=== PATIENT | female | born 1990 | race Caucasian/White ===

== ENCOUNTER 2021-06-28 09:45 | Emergency (ER) | payer OTHER ==
--- NOTE | 2021-06-28 10:24 | EDM.PDOC ---
ED HPI GENERAL MEDICAL PROBLEM - General Chief Complaint: General Stated Complaint: OB-SPOTTING,CRAMPING Time Seen by Provider: 06/28/21 09:54 Source of Information: Reports: Patient History Limitations: Reports: No Limitations - History of Present Illness INITIAL COMMENTS - FREE TEXT/NARRATIVE: Patient presents with vaginal bleeding. It is constant and heavier than her usual menstrual bleeding, also some mild cramping. It started 2 days ago. Three days ago she took a home test that was positive. She checked it because she was a week late for her period and she and her are trying for their third child. She called her OB at [facility] and was told to come to ER. - Related Data Allergies Allergy/AdvReac Type Severity Reaction Status Date / Time No Known Drug Allergies Allergy Cannot Verified 06/28/21 10:09 Remember Home Meds: Home Meds . [No Known Home Meds] 06/28/21 [History] Social & Family History - Tobacco Use Tobacco Use Status *Q: Never Tobacco User - Caffeine Use Caffeine Use: Reports: Coffee - Recreational Drug Use Recreational Drug Use: No ED ROS GENERAL - Review of Systems Review Of Systems: See Below Constitutional: Denies: Fever, Chills, Malaise, Weakness HEENT: Denies: Ear Pain, Throat Pain, Vision Change Respiratory: Denies: Shortness of Breath, Cough Cardiovascular: Denies: Chest Pain, Lightheadedness, Syncope GI/Abdominal: Denies: Abdominal Pain, Diarrhea, Nausea, Vomiting : Denies: Dysuria, Flank Pain Musculoskeletal: Reports: No Symptoms, Muscle Stiffness Neurological: Reports: No Symptoms Psychiatric: Reports: No Symptoms Hematologic/Lymphatic: Reports: No Symptoms ED EXAM, GENERAL - Physical Exam Exam: See Below Exam Limited By: No Limitations General Appearance: Alert, WD/WN, No Apparent Distress Eye Exam: Bilateral Eye: EOMI, Normal Inspection, PERRL Ears: Normal External Exam, Hearing Grossly Normal Nose: Normal Inspection, No Blood Throat/Mouth: Normal Inspection, Normal Lips, Normal Voice, No Airway Compromise Head: Atraumatic, Normocephalic Neck: Normal Inspection, Full Range of Motion Respiratory/Chest: No Respiratory Distress, Lungs Clear, Normal Breath Sounds, No Accessory Muscle Use Cardiovascular: Regular Rate, Rhythm, No Murmur GI/Abdominal: Normal Bowel Sounds, Soft, Non-Tender, No Organomegaly, No Distention, No Abnormal Bruit Back Exam: Normal Inspection, Full Range of Motion. No: CVA Tenderness (L), CVA Tenderness (R) Extremities: Normal Inspection, Normal Range of Motion Neurological: Alert, Oriented, Normal Cognition, No Motor/Sensory Deficits Psychiatric: Normal Affect, Normal Mood Skin Exam: Warm, Dry, Intact, Normal Color, No Rash Course - Vital Signs Last Recorded V/S: Last Vital Signs Temp 98.1 F 06/28/21 10:03 Pulse 91 06/28/21 10:03 Resp 16 06/28/21 10:03 BP 138/90 06/28/21 10:03 Pulse Ox 98 06/28/21 10:03 - Orders/Labs/Meds Labs: Laboratory Tests 06/28/21 06/28/21 Range/Units 10:30 10:30 WBC 6.10 (5.00-10.00) 10^3/uL RBC 4.84 (3.80-5.50) 10^6/uL Hgb 13.9 (12.0-16.0) g/dL Hct 42.2 (37.0-47.0) % MCV 87.2 (82.0-92.0) fL MCH 28.7 (27.0-31.0) pg MCHC 32.9 (32.0-36.0) g/dL RDW 11.5 (11.5-14.5) % Plt Count 236 (150-400) 10^3/uL MPV 9.9 (7.4-10.4) fL Immature Gran % (Auto) 0.2 (0.0-5.0) % Neut % (Auto) 67.4 (50.0-70.0) % Lymph % (Auto) 28.5 (20.0-40.0) % Dickey % (Auto) 2.8 (2.0-8.0) % Eos % (Auto) 0.8 L (1.0-3.0) % Baso % (Auto) 0.3 (0.0-1.0) % Neut # (Auto) 4.11 (2.50-7.00) 10^3/uL Lymph # (Auto) 1.74 (1.00-4.00) 10^3/uL Dickey # (Auto) 0.17 (0.10-0.80) 10^3/uL Eos # (Auto) 0.05 L (0.10-0.30) 10^3/uL Baso # (Auto) 0.02 (0.00-0.10) 10^3/uL Immature Gran # (Auto) 0.01 (0.00-0.50) 10^3/uL HCG, Qual Cancelled HCG, Quant 21 H (0-6) mIU/mL - Re-Assessments/Exams Free Text/Narrative Re-Assessment/Exam: 06/28/21 11:15 Quantitative HCG is 21 which correlates with 0-2 weeks gestation. No lower abdominal pain to suggest ectopic. This is very likely a progressing miscarriage. Discussed findings and recommendations with patient. She will call tomorrow for follow up with her PCP. Patient is stable at discharge. Departure - Departure Time of Disposition: 11:08 Disposition: Home, Self-Care 01 Condition: Good Clinical Impression: Episode of heavy vaginal bleeding, Miscarriage, threatened, early - Discharge Information Instructions: Threatened Miscarriage, [id number] Referrals: Lynn Cordova MD [Primary Care Provider] - Forms: ED Department Discharge Additional Instructions: Light to moderate activity the next few days. Call your PCP tomorrow morning for further evaluation and follow up. If worsening, recheck in clinic or ER as needed. Sepsis Event Note (ED) - Evaluation Sepsis Screening Result: No Definite Risk - Focused Exam Vital Signs: Vital Signs Temp Pulse Resp BP Pulse Ox 06/28/21 10:03 98.1 F 91 16 138/90 98
== END 2021-06-28 11:25 | disposition home or self-care (01) ==
LOC: KA.ED 09:45
DX: O20.0 Threatened abortion (principal); Z3A.01 Less than 8 weeks gestation of pregnancy
CPT/HCPCS: 36415; 84702; 85025; 99283; 99284